=== PATIENT | female | born 1935 | race Hispanic/Latino ===

== ENCOUNTER → 2022-07-19 | Outpatient (CLI) | payer MEDICARE | END | disposition home or self-care (01) | LOC: RAH 16:51 | PROVIDERS: ATTEND Internal Medicine | DX: M19.041 Primary osteoarthritis, right hand (principal); M20.001 Unspecified deformity of right finger(s) | CPT/HCPCS: 73130; 73140 ==

== ENCOUNTER → 2023-07-26 | Outpatient (CLI) | payer MEDICARE | END | disposition home or self-care (01) | LOC: RAH 12:42 | PROVIDERS: ATTEND Internal Medicine | DX: I70.203 Unspecified atherosclerosis of native arteries of extremities, bilateral legs (principal); R06.02 Shortness of breath; R60.9 Edema, unspecified; I70.0 Atherosclerosis of aorta | CPT/HCPCS: 93925; 93970 ==

== ENCOUNTER → 2024-09-03 | Outpatient (CLI) | payer MEDICARE ==
--- NOTE | 2024-09-03 16:35 | HMCIMG ---
DEXA BONE DENSITY SURVEY REASON: Unspecified menopausal and perimenopausal disorder COMPARISON: None TECHNIQUE: DEXA bone densitometry was performed of the lumbar spine and right hip. FINDINGS: Mean bone mass density in the spine is 0.962 g/sq cm, T score -0.8. L3 T score however is -1.2 corresponding with osteopenia. Femoral neck T score is -1.0, also on the borderline between normal findings at osteopenia. IMPRESSION: 1. Osteopenia consistent with a moderate fracture risk.
== END | disposition home or self-care (01) ==
LOC: RAH 13:36
PROVIDERS: ATTEND Internal Medicine
DX: M85.89 Other specified disorders of bone density and structure, multiple sites (principal); N95.9 Unspecified menopausal and perimenopausal disorder
CPT/HCPCS: 77080